=== PATIENT | male | born 1980 | race Caucasian/White ===

== ENCOUNTER → 2016-12-09 | Outpatient (CLI) | payer BC ==
[~2016-12-09] MED LIST: ANTIVERT12.5 MG PO; IBUPROFEN800 MG PO; LORTAB 7.51 TAB 7.5/ PO; MEDROL PO; MEDROL4 MG/DOSE- PO; NO MEDICATIONS; ZANAFLEX PO
--- NOTE | ~2016-12-09 | CT2 ---
[facility] A Service of [facility] RADIOLOGY TEXT RESULTS PATIENT: EULA VALENZUELA LOCATION: [facility] : [birth year] UNIT #: [id number] AGE: [address]: Loli Velasco MD SEX: M ORDER DR: [id number] [facility]. [place], [place] [address] [id number] O MR#: [id number] [facility] #: [id number] NAME: EULA VALENZUELA : 1980 SEX: M STUDY DATE/TIME: 12/09/2016 10:16 UNIT: [facility] ROOM: STUDY DESCRIPTION: CT Abd and Pelv W Cont Attending Physician: Loli Velasco M.D. Referring Physician: Loli Velasco M.D. Ordering Physician: Loli Velasco M.D. Primary Care Physician: Loli Velasco M.D. MEDICAL IMAGING REPORT This report is preliminary unless electronic signature is present EXAM CT of the abdomen and pelvis with contrast INDICATIONS Lower abdominal pain for [address] images were obtained from the dome of the diaphragm through the symphysis pubis following administration of oral and intravenous contrast material. This CT exam was performed with one or more of the following radiation dose reduction techniques: automatic exposure control, adjustment of mA and/or kV according to patient size, and iterative reconstruction. FINDINGS Images through the lung bases are clear. Mild scarring seen within the right middle lobe, as well as in the lingula. Liver and gallbladder appear normal as are the stomach, proximal small bowel, adrenal glands, spleen and pancreas. The kidneys appear normal. Tiny fat-containing umbilical hernia. The appendix is visualized and is within normal limits. GI tract appears normal. Patient does have circumaortic left renal vein. Urinary bladder and prostate gland are normal. No free fluid or adenopathy is seen within the pelvis. Review of bony windows. I do not demonstrate any aggressive osseous abnormalities. IMPRESSION No acute intraabdominal or intrapelvic process is seen. Solid organs appear unremarkable as does the GI tract. Appendix is visualized and is within normal limits. [facility] A Service of [facility] RADIOLOGY TEXT RESULTS PATIENT: EULA VALENZUELA LOCATION: [facility] : 82 UNIT #: [id number] AGE: [address]: Loli Velasco MD SEX: M ORDER DR: Dictated by... Tamara Deng M.D. THIS IS AN ELECTRONICALLY VERIFIED REPORT Tamara Deng M.D. at 12/10/2016 5:02 PM AFF/pcl TD: 12/09/2016 18:45 JOB #: [id number] MEDICAL IMAGING REPORT Page 1 of 1 COPY
[2016-12-09 09:40] LABS: POC - CREATININE 0.88 mg/dL (0.64-1.27); POC - GFR >60.0 mL/min (>60)
== END | disposition home or self-care (01) ==
LOC: CCAT 09:09
PROVIDERS: Family Medicine
DX: R10.9 Unspecified abdominal pain (principal)
CPT/HCPCS: 74177; 82565; Q9967